=== PATIENT | female | born 1970 | race Caucasian/White ===

== ENCOUNTER → 2016-11-04 | Outpatient (CLI) | payer OTHER ==
[~2016-11-04] MED LIST: ALUMCHW2; ASPI81TA28 OR; MULT-506 PO; RANI150T3 PO
--- NOTE | 2016-11-04 13:44 | DIAGNOSTIC IMAGING REPORT ---
LEFT TIBIA AND FIBULA 2 VIEWS CLINICAL HISTORY: Left leg pain. FINDINGS: AP and lateral views of the left tibia and fibula are correlated with radiographs of the left knee dated 01/01/2015. The skeletal structures are well mineralized. No fracture is seen. The knee and ankle joints are grossly maintained. The overlying soft tissues are within normal limits. IMPRESSION: Unremarkable radiographic assessment of the left tibia and fibula. Electronically signed by: Sebastian Granados M.D. 11/04/2016 1:42 PM Dictated Date/Time: 11/04/2016 1:41 PM
== END | disposition home or self-care (01) ==
LOC: C.RAD 13:21
PROVIDERS: ATTEND Orthopaedic Surgery Sports Medicine
DX: M79.605 Pain in left leg (principal)

== ENCOUNTER → 2017-06-22 | Outpatient (CLI) | payer OTHER ==
--- NOTE | 2017-06-23 10:25 | ECHOCARDIOGRAM REPORT ---
*NOTICE TO RECEIVING DEMOCRAT AGENCY This information is strictly Confidential and protected under [place] law. [place] law prohibits you from making any further disclosure of this information unless further disclosure is expressly permitted by the written consent of the person to whom it pertains or is authorized by law. A general authorization for the release of medical or other information is not sufficient for this purpose. Hospital accepts no responsibility if the information is made available to any other person, INCLUDING THE PATIENT. Interpretation Summary * Name: KE MOORE Study Date: 06/22/2017 02:47 PM BP: 111/62 mmHg * Patient Location: [facility] HR: 58 * : 1970 (M/d/yyyy) Gender: Female Height: 65 in * Age: 46 yrs Ethnicity: [place] Weight: 110 lb * Ordering Physician: Santosh Breen * Referring Physician: Santosh Breen PA-C * Performed By: Sanjuana Cabral RDCS * * Reason For Study: PFO, RIGHT ATRIAL ENLARGEMENT * BSA: 1.5 m2 * -- Conclusions -- * Normal LV chamber size and wall thickness. * Normal LV systolic function, EF 55-60%. * No segmental left ventricular wall motion abnormalities are noted. * Normal diastolic function. * Trace mitral regurgitation. * Mild right atrial enlargement. * No ASD detected; PFO is not assessed. Procedure Details * A complete two-dimensional transthoracic echocardiogram was performed (2D, M-mode, Doppler and color flow Doppler). Left Ventricle * The left ventricle is normal in size. * There is normal left ventricular wall thickness. * Ejection Fraction = 55-60%. * Left ventricular systolic function is normal. * No segmental left ventricular wall motion abnormalities are noted. * The left ventricular wall motion is normal. Right Ventricle * The right ventricular cavity size is normal (basal dimension <4.2 cm in right ventricular apical 4-chamber view). * The right ventricular systolic function is normal as assessed by tricuspid annular plane systolic excursion (TAPSE) (normal >1.5 cm). Atria * The left atrial size is normal. * The right atrium is mildly dilated. * A prominent eustachian valve is noted. * No ASD detected; PFO is not assessed. Mitral Valve * The mitral valve anatomy is normal. * There is no mitral valve stenosis. * There is trace mitral regurgitation. Tricuspid Valve * The tricuspid valve is normal in structure and function. Aortic Valve * The aortic valve is normal in structure and function. Pulmonic Valve * The pulmonary valve is not well seen, but the Doppler examination is normal without significant regurgitation or stenosis. Great Vessels * The aortic root is normal size. Pericardium/Pleural * There is no pericardial effusion. Left Ventricular Diastolic Function * Pulse wave TDI of the anterior and posterior mitral annulas demonstrates normal LV relaxation MMode 2D Measurements and Calculations IVSd 0.87 cm IVSs 1.3 cm LVIDd 4.1 cm LVIDs 3.0 cm LVPWd 0.93 cm LVPWs 1.3 cm IVS/LVPW 0.93 FS 28.5 % EDV(Teich) 75.8 ml ESV(Teich) 33.9 ml EF(Teich) 55.3 % EDV(cubed) 70.8 ml ESV(cubed) 25.9 ml EF(cubed) 63.4 % % IVS thick 45.5 % % LVPW thick 39.1 % LV mass(C)d 115.6 grams LV mass(C)dI 75.3 grams/m\S\2 LV mass(C)s 118.7 grams LV mass(C)sI 77.3 grams/m\S\2 SV(Teich) 42.0 ml SI(Teich) 27.3 ml/m\S\2 SV(cubed) 44.9 ml SI(cubed) 29.3 ml/m\S\2 Ao root diam 2.7 cm Ao root area 5.9 cm\S\2 LA dimension 2.9 cm LA/Ao 1.1 LVAd ap4 31.4 cm\S\2 LVLd ap4 8.1 cm EDV(MOD-sp4) 102.2 ml EDV(sp4-el) 102.8 ml LVAs ap4 20.2 cm\S\2 LVLs ap4 6.9 cm ESV(MOD-sp4) 52.4 ml ESV(sp4-el) 50.0 ml EF(MOD-sp4) 48.7 % EF(sp4-el) 51.4 % LVAd ap2 33.8 cm\S\2 LVLd ap2 8.4 cm EDV(MOD-sp2) 114.0 ml EDV(sp2-el) 115.4 ml LVAs ap2 21.5 cm\S\2 LVLs ap2 7.2 cm ESV(MOD-sp2) 54.5 ml ESV(sp2-el) 54.5 ml EF(MOD-sp2) 52.2 % EF(sp2-el) 52.8 % LVLd %diff 3.3 % EDV(MOD-bp) 110.3 ml LVLs %diff 3.6 % ESV(MOD-bp) 53.9 ml EF(MOD-bp) 51.1 % SV(MOD-sp4) 49.8 ml SI(MOD-sp4) 32.4 ml/m\S\2 SV(MOD-sp2) 59.5 ml SI(MOD-sp2) 38.8 ml/m\S\2 SV(MOD-bp) 56.4 ml SI(MOD-bp) 36.7 ml/m\S\2 SV(sp4-el) 52.8 ml SI(sp4-el) 34.4 ml/m\S\2 SV(sp2-el) 60.9 ml SI(sp2-el) 39.7 ml/m\S\2 Doppler Measurements and Calculations MV E max eliana 69.8 cm/sec MV A max eliana 46.4 cm/sec MV E/A 1.5 MV dec time 0.25 sec Ao V2 max 116.5 cm/sec Ao max PG 5.4 mmHg Ao max PG (full) 1.4 mmHg LV V1 max PG 4.1 mmHg LV V1 max 100.9 cm/sec TR max eliana 152.4 cm/sec
== END | disposition home or self-care (01) ==
LOC: C.CPL 14:33
PROVIDERS: ATTEND Physician Assistant
DX: Q21.1 Atrial septal defect (principal); I51.7 Cardiomegaly

== ENCOUNTER → 2017-12-23 | Outpatient (CLI) | payer OTHER | END | disposition home or self-care (01) | LOC: C.PAPS 18:22 | PROVIDERS: ATTEND Obstetrics & Gynecology | DX: Z12.4 Encounter for screening for malignant neoplasm of cervix (principal); E28.319 Asymptomatic premature menopause ==

== ENCOUNTER → 2018-02-24 | Outpatient (CLI) | payer OTHER ==
--- NOTE | 2018-02-27 14:33 | MAMMOGRAPHY REPORT ---
BILATERAL DIGITAL SCREENING MAMMOGRAM TOMOSYNTHESIS WITH CAD: 02/24/2018 CLINICAL HISTORY: Routine screening. Patient has no complaints. TECHNIQUE: Breast tomosynthesis in addition to standard 2D mammography was performed. Current study was also evaluated with a Computer Aided Detection (CAD) system. COMPARISON: Comparison is made to exam dated: 02/26/2015 mammogram - [facility]. BREAST COMPOSITION: The tissue of both breasts is extremely dense, which lowers the sensitivity of m ammography. FINDINGS: No suspicious masses, calcifications, or areas of architectural distortion are noted in ei ther breast. There has been no significant interval change compared to prior exams. IMPRESSION: ACR BI-RADS CATEGORY 1: NEGATIVE There is no mammographic evidence of malignancy. A 1 year screening mammogram is recommended. The pa tient will receive written notification of the results. Approximately 10% of breast cancers are not detected with mammography. A negative mammographic report should not delay biopsy if a clinically suggestive mass is present. Devora Mattson M.D. ah/:02/24/2018 14:33:27 Drapery Hand: Jennifer STOCK(Mary Ellen)(Anastasia)(BD), [facility] letter sent: Normal 1/2 BI-RADS Code: ACR BI-RADS Category 1: Negative
== END | disposition home or self-care (01) ==
LOC: C.MAMM 10:47
PROVIDERS: ATTEND Obstetrics & Gynecology
DX: Z12.31 Encounter for screening mammogram for malignant neoplasm of breast (principal)